=== PATIENT | male | born 1940 | race Caucasian/White ===

== ENCOUNTER → 2019-04-24 | Outpatient (CLI) | payer MEDICARE, OTHER ==
[2017-07-01 09:46] VITALS: BP 119/50
[~2019-04-24] MED LIST: AMLO10TA8 PO; DONE10TA7 PO; FURO-69 PO; OMEP40CA5 PO; TOPI50TA8 PO; TRAZ-118 PO
--- NOTE | 2019-04-24 09:48 | RAD ---
Chest radiograph 04/24/2019 9:22 AM INDICATION: Pulmonary hypertension COMPARISON: June 27, 2017 TECHNIQUE: Frontal and lateral views of the chest are provided. FINDINGS: The cardiomediastinal silhouette is within normal limits. There are no pleural effusions. There is no pulmonary vascular congestion. There is no pneumothorax. Increased patchy interstitial nodular airspace disease identified in the right lower lobe. Biapical pleural-parenchymal scarring is noted. Previously seen right upper lobe airspace disease is predominantly resolved. No significant osseous abnormality is identified. IMPRESSION: There is increased patchy interstitial nodular airspace disease in the right lower lobe. Consideration may be of an infectious/inflammatory pneumonitis. Previously seen right upper lobe airspace disease predominantly resolved. There may be minimal residual nodular density within the right suprahilar region. CT chest may be of benefit for further evaluation. Electronically signed by: Gabrielle Padilla MD (04/24/2019 9:45 AM) [id number]
--- NOTE | 2019-04-24 10:55 | RAD ---
Examination: CT CHEST WO CONTRAST History: Pulmonary hypertension Comparison/Correlation: 06/27/2017 CTA of the chest Findings: Axial images of chest were obtained without contrast. Sagittal and coronal reformatted images were provided. Main pulmonary artery diameter of 3.2 cm noted. Right pulmonary artery has a diameter of 2.8 cm. Left pulmonary artery diameter of 2.7 cm present. Thoracic aorta is grossly unremarkable on this nonarteriographic exam. No pneumothorax. Groundglass appearance of the anterior right upper lung field and right lung base noted. Groundglass involvement of the lingula and left lung base also seen. No suspicious solid pulmonary nodule or mass. No enlarged thoracic lymph nodes. No pleural or pericardial effusion. Visualized upper abdomen is unremarkable. Bony structures are unremarkable for age. Impression: No significant dilatation of the main pulmonary artery. The right and left pulmonary arteries are somewhat dilated. No significant change in size or morphology of the pulmonary arteries in the interval. Regions of groundglass involvement of the lung ahumada are new in the interval and this may represent mosaic attenuation and small airways disease. No dense consolidation or suspicious nodule. PQRS Compliance Statement: One or more of the following individualized dose reduction techniques were utilized for this examination: 1. Automated exposure control 2. Adjustment of the mA and/or kV according to patient size 3. Use of iterative reconstruction technique Electronically signed by: Jonnie Kimble MD (04/24/2019 10:52 AM) [facility]
--- NOTE | 2019-04-24 11:35 | RAD ---
Examination: LUNG VENT/PERFUSION SCAN(VQ) History: Pulmonary hypertension Comparison/Correlation: CT chest without contrast performed on the same day after the VQ scan Findings: 17 mCi xenon-133 gas was utilized for ventilation imaging. Delayed washout of radiotracer compatible with COPD is noted. No significant ventilation defect. 6.6 mCi technetium 99m MAA was intravenously administered for purposes of perfusion imaging. Imaging was performed in 6 projections. There are are multiple segmental mismatched defects bilaterally. Impression: High probability for pulmonary embolism. Perfusion findings may be acute or chronic. Multiple mismatched defects are present but patient has a known history of pulmonary hypertension and a history of extensive pulmonary arterial thromboembolic disease as demonstrated on 06/27/2017 CTA of the chest. Correlation clinically is required. The ordering physician Dr. Enriquez was informed on 04/24/2019 at 11:31 AM. Electronically signed by: Jonnie Kimble MD (04/24/2019 11:32 AM) [facility]
== END | disposition home or self-care (01) ==
LOC: NM 09:02
PROVIDERS: ATTEND Internal Medicine Cardiovascular Disease
DX: J98.4 Other disorders of lung (principal); I27.20 Pulmonary hypertension, unspecified; I10 Essential (primary) hypertension
CPT/HCPCS: 71046; 71250; 78582; 96374; A9540; A9558